=== PATIENT | male | born 1955 | race Caucasian/White ===

== ENCOUNTER 2017-12-01 07:10 | Inpatient (IN) | payer OTHER ==
[2017-12-01] MEDS ORDERED: ONDANSETRON 4 MG/2 ML VIAL IVP ONE (07:25)
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
[2017-12-01 07:40] LABS: PLATELET COUNT 314 10^3/uL (150-400)
[2017-12-01] MEDS ORDERED: HYDROmorphONE/DILAUDID 2 MG/ML INJ IVP ONE ×2 (07:58→09:32)
[2017-12-01] MEDS ORDERED: DIAZEPAM 5 MG/ML 1 ML SYR IVP ONE (08:19)
[2017-12-01] MEDS ORDERED: DIAZEPAM 5 MG/ML 1 ML SYR ONE (08:21)
--- NOTE | 2017-12-01 08:24 | CPEKG ---
Heart Rate: 94 RR Interval: 638 P-R Interval: 155 QRSD Interval: 92 QT Interval: 356 QTC Interval: 446 P [place]: 0 QRS [place]: 82 T Wave [place]: 65 EKG Severity - OTHERWISE NORMAL ECG - EKG Impression: SINUS RHYTHM EKG Impression: BORDERLINE RIGHT AXIS DEVIATION Electronically Signed By: Yuliya Mix 01-Dec-2017 15:02:17
[2017-12-01] MEDS ORDERED: NS 1,000 ML IV ONE (08:40)
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
[2017-12-01] MEDS ORDERED: BUPIVACAINE/EPI 0.5% 30 ML SDV ONE (10:04)
[2017-12-01] MEDS ORDERED: BUPIVACAINE 0.5% 30 ML SDV ONE (10:05)
[2017-12-01] MEDS ORDERED: fentaNYL 100 MCG/2 ML INJ ONE ×5 (10:39→14:10)
[2017-12-01] MEDS ORDERED: PROPOFOL 200 MG/20 ML VIAL ONE (10:39)
[2017-12-01] MEDS ORDERED: MIDAZOLAM 2 MG/2 ML VIAL ONE (10:39)
[2017-12-01] MEDS ORDERED: SUCCINYLCHOLINE CHLORIDE 200 MG/10 ML SYR IVP ONE (10:40)
[2017-12-01] MEDS ORDERED: LR 1,000 ML IV ONE (10:42)
[2017-12-01] MEDS ORDERED: KETOROLAC 30 MG/1 ML SDV ONE (10:57)
[2017-12-01] MEDS ORDERED: ONDANSETRON 4 MG/2 ML VIAL ONE (10:57)
[2017-12-01] MEDS ORDERED: DEXAMETHASONE 4 MG/ML VIAL ONE (10:58)
--- NOTE | 2017-12-01 11:06 | PDANEPAE ---
ANE History of Present Illness Patient presents for TFN left ANE Past Medical History - Pulmonary History Hx COPD: Yes Hx Oxygen in Use at Home: No - Endocrine History Hx Diabetes: No - Liver History Hx Hepatic Disorders: Yes Hepatic History Comment: HCV ANE Review of Systems Review of Systems: ANE Patient History - Allergies Allergies/Adverse Reactions: gabapentin [From Neurontin] Allergy (Unknown, Verified 07/31/12 11:46) Unknown - Home Medications Home medications: home medication list seen and reviewed Home Medications: Fluticasone/Salmeter 250/50Mcg [Advair 250/50 (*)] 1 puffs IH BID 06/09/16 [ Last Taken Unknown] oxyCODONE IR [Oxycodone Ir (*)] 10 mg PO Q4HRS 06/09/16 [Last Taken Unknown] Ipratropium [Atrovent Hfa (*)] 2 puffs IH Q4HRS 12/01/17 [Last Taken Unknown] Lidocaine 4%/Menthol 1% [Icy Hot Lidocaine/Menthol 4%/1% Patch (*)] 1 patch TD DAILY 12/01/17 [Last Taken Unknown] Sumatriptan Succinate [Imitrex] 50 - 100 mg PO DAILY PRN 12/01/17 [Last Taken Unknown] lamoTRIgine [LamICTAL 100 MG (*)] 100 mg PO DAILY 12/01/17 [Last Taken Unknown] morphINE SR [Ms Contin/Oramorph 15 mg (*)] 15 mg PO BID 12/01/17 [Last Taken Unknown] - NPO status NPO Status: no food or drink >8 hours NPO Since - Liquids (Date): 12/01/17 NPO Since - Liquids (Time): 04:30 NPO Since - Solids (Date): 11/30/17 NPO Since - Solids (Time): 00:59 - Smoking Hx Smoking Status: Former smoker ANE Labs/Vital Signs - Labs Result Diagrams: 12/01/17 07:20 12/01/17 07:20 - Vital Signs Blood Pressure: 130/77 Heart Rate: 93 Respiratory Rate: 18 O2 Sat (%): 93 Height: 167.64 cm Weight: 53.524 kg ANE Physical Exam - Airway Neck exam: FROM Mallampati Score: Class 2 Mouth exam: poor dentition - Pulmonary Pulmonary: no respiratory distress - Cardiovascular Cardiovascular: regular rate and rhythym - ASA Status ASA Status: III ANE Anesthesia Plan Anesthesia Plan: general endotracheal anesthesia (rba discussed)
[2017-12-01] MEDS ORDERED: PHENYLEPHRINE HCL 100 MCG/ML SYR ONE ×2 (12:26)
[2017-12-01] MEDS ORDERED: oxyCODONE IR 5 MG TAB PO PRN ×2 (12:45→13:33)
[2017-12-01] MEDS ORDERED: NALOXONE HCL 0.4 MG/ML INJ IVP PRN (12:45)
[2017-12-01] MEDS ORDERED: LR 500 ML IV PRN (12:45)
[2017-12-01] MEDS ORDERED: ACETAMINOPHEN 500 MG TAB PO PRN (12:45)
[2017-12-01] MEDS ORDERED: ONDANSETRON 4 MG/2 ML VIAL IVP PRN (12:45)
[2017-12-01] MEDS: fentaNYL 100 MCG/2 ML INJ IVP PRN ×4 (13:22→14:14)
--- NOTE | 2017-12-01 13:24 | POSTOPPROG ---
Post Op Note Date of Operation: 12/01/17 Surgeon: Cristo Clifford Wood Handler: janet Liriano Anesthesiologist: jose carlos Anesthesia: GET(General Endotracheal) Pre-op Diagnosis: Comminuted proximal femur fx LT closed Post-op Diagnosis: same Procedure: IMN, ORIF femur Findings: comminuted femur fx Inf/Abcess present in the surg proc area at time of surgery?: No EBL: 100-500 Complications: none
[2017-12-01] MEDS ORDERED: oxyCODONE IR 5 MG TAB ONE (14:10)
[2017-12-01] MEDS ORDERED: DIAZEPAM 5 MG TAB ONE (14:11)
[2017-12-01] MEDS ORDERED: DIAZEPAM 5 MG TAB PO ONE (14:15)
--- NOTE | 2017-12-01 14:35 | GOP ---
[f rep st] OPERATIVE REPORT DATE OF OPERATION: 12/01/2017 SURGEON: Cristo Clifford MD IRONING WORKER: Donell Liriano CST. ANESTHESIA: General. ANESTHESIOLOGIST: Dr. Moon. PREOPERATIVE DIAGNOSIS: Proximal left femur fracture. POSTOPERATIVE DIAGNOSIS: Proximal left femur fracture. PROCEDURE PERFORMED: 1. Intramedullary nailing, left femur fracture. 2. Open reduction and internal fixation. FINDINGS: ESTIMATED BLOOD LOSS: 200 mL. DESCRIPTION OF PROCEDURE: After appropriate informed consent was obtained, the patient was taken to the operating room and placed supine on the operating table. Time-out was performed. Patient was id entified. Correct site was identified, matched with radiographs available in the room. He was adminis tered [address] Moon administered general endotracheal tube anesthesia. The pat ient was positioned on the fracture table. The left lower extremity in the traction boot. Right low er extremity was placed in a well-padded leg osborn. The fracture was comminuted with a butterfly fr agment that was flipped on the medial side. We applied a little traction. We then made an incision o blaise the tip of the greater trochanter and got our starting point. Due to the comminuted fracture, I made an open incision centered directly over the fracture site using a laterally based incision. ITB was incised. Vastus lateralis was elevated off the bone. Bleeding was controlled electrocautery. I t was in 3 large pieces. I was able to get the pieces realigned, held them in place with a series of clamps and then was able to pass our ball-tipped guidewire to the tip of the distal femur. We then sequentially reamed up to a size 12 with good cortical chatter. I measured that 380 mm long. We then passed our nail past the fracture site and seated distally. Using our extramedullary jig, we placed a spiral blade plate superiorly into the head and neck of the femur and confirmed its position with AP and lateral fluoroscopic images. Again, due to the comminuted nature of the fracture, I was able to place 3 cerclage wires starting of the lesser trochanter and working distally holding the fracture fragments securely in place around the nail. I placed one distal locking screw using perfect platinum technique. Final imaging was obtained which showed satisfactory reduction of the fracture and nail p osition. The wound was irrigated. I closed the deep layers with 0 Vicryl, superficial layers closed with 2-0 Vicryl and the skin was closed with ayan. I instilled 30 mL of 0.5% Marcaine with epinep hrine around the incisions. Sterile dressing was applied. The patient was transferred back to his [facility] bed, awakened from anesthesia, and taken to the recovery room in satisfactory condition. Ther e were no immediate intraoperative complications. Damian Liriano's assistance was required throughout the entire case. COMPLICATIONS: None. DRAINS: None. IMPLANTS USED: A Synthes TFN 11 x 38 mm nail, 3 cerclage wires. COMPLICATIONS: None. DRAINS: None. HISTORY: Samy is a 62-year-old male who slipped and fell about 10 feet off a wall today and sustai abdelrahman a proximal femur fracture. He was brought to the emergency department. I evaluated him in the [facility] [place]. Decision was made to proceed with open reduction and internal fixation, and intramedullar y nailing of his femur. /[id number]/MODL
--- NOTE | 2017-12-01 14:53 | POSTANESTH ---
Post Anesthetic Evaluation Cardiovascular Status: Similar to Pre-Op Cond Respiratory Status: Similar to Pre-op Cond. Level of Consciousness/Mental Status: Alert and Oriented Pain Control: Adequate, Prn Tx Ordered, Inadeq, Add Tx Required Nausea/Vomiting Control: Adequate, Prn Tx Ordered Complications Possibly Related to Anesthesia: None Noted (valium ordered for muscle spasms)
[2017-12-01] MEDS ORDERED: SUMAtriptan 50 MG TAB PO PRN (15:15)
--- NOTE | 2017-12-01 15:37 | PDMN ---
Medical Necessity Medical necessity: IP surgery per Mcare for ORIF, intramedullary nailing of L femur fx
[2017-12-01] MEDS: IPRATROPIUM HFA INHALER IH SCH ×3 (15:48→21:15)
[2017-12-01] MEDS: oxyCODONE IR 5 MG TAB PO PRN ×2 (18:37→23:07)
[2017-12-01] MEDS: ceFAZolin 2 GM/SWFI 2 GM/20 ML SYR IVP SCH (18:38)
[2017-12-01] MEDS: D5W 1/2 NS W/ 20 KCl/L 1,000 ML IV SCH (18:41)
[2017-12-01] MEDS: DIAZEPAM 5 MG TAB PO PRN (20:52)
[2017-12-01] MEDS: morphINE SR 15 MG TAB PO SCH (20:52)
[2017-12-01] MEDS: FLUTICASONE/SALMETER 250/50MCG DISKUS IH SCH (21:15)
--- NOTE | 2017-12-01 23:42 | GHP ---
[f rep st] PREOP HISTORY AND PHYSICAL DATE OF ADMISSION: 12/01/2017 HISTORY OF PRESENT ILLNESS: Patient is a 62-year-old male seen early this morning after a slip and f all sustaining a left femur fracture. He will be seen by orthopedist for ORIF of his femur. He has no other injuries from the fall. He is brought in as a limited trauma activation because of a 10 alberta t fall. He denies any loss of consciousness, and he has no other complaints of pain. REVIEW OF SYSTEMS: Negative on a full 10-point review. PAST HISTORY: Includes a lumbar spine fusion, an appendectomy, cholecystectomy, history of hepatitis C, bilateral hand surgeries, bilateral cataract surgeries, left 11th and 12th rib resection, some CO PD. SOCIAL HISTORY: He is an ex-smoker. ALLERGIES: Gabapentin. PRESENT MEDICATIONS: Are Advair, Atrovent, oxycodone, Imitrex, Lamictal, MS Contin. PHYSICAL EXAMINATION: GENERAL: An alert 62-year-old male in no acute distress. HEAD AND NECK: No icterus, adenopathy, or oral lesions. Neck is supple and nontender. CHEST: Clear and symmetrical w ith no palpable rib or clavicle fractures and no tenderness. CARDIAC: Regular rhythm. ABDOMEN: So ft; nontender; without masses, organomegaly, or hernias. GENITALIA: Normal. EXTREMITIES: Full pul ses. Full range of motion except for the left leg which is externally rotated and shortened with a t lobo palpable femur fracture. NEUROLOGIC: Physiologic and symmetric with intact cranial nerves. P SYCH: Patient alert, somewhat anxious, oriented, and cooperative. IMPRESSION: Left femur fracture. PLAN: Admit for Orthopedic consultation and ORIF of his left femur. /[id number]/MODL
[2017-12-02] MEDS: ACETAMINOPHEN 325 MG TAB PO PRN (00:07)
[2017-12-02] MEDS: IPRATROPIUM HFA INHALER IH SCH ×6 (02:05→21:10)
[2017-12-02] MEDS: DIAZEPAM 5 MG TAB PO PRN ×3 (03:13→17:50)
[2017-12-02] MEDS: ceFAZolin 2 GM/SWFI 2 GM/20 ML SYR IVP SCH (03:13)
[2017-12-02] MEDS: oxyCODONE IR 5 MG TAB PO PRN ×3 (03:13→11:41)
--- NOTE | 2017-12-02 08:48 | SOAPPROG ---
MAE Progress Note Assessment/Plan: Assessment: POD#1 LT IMN/ORIF femur fx Plan: 12/02/17 08:45 H/H drop asymptomatic so far will see how he does Today with PT TTWB x 4 weeks Xarelto for DVT proph chronic pain on baseline home meds may need snf Subjective: still having quite a bit of pain Objective: dressing c/d/i calf soft 5/5 df/pf 1+dp/pt pulses Vital Signs Temp Pulse Resp BP Pulse Ox 37.2 C 94 18 115/67 94 12/02/17 07:35 12/02/17 07:35 12/02/17 07:35 12/02/17 07:35 12/02/17 07:35 Laboratory Results 12/02/17 00:26 12/01/17 12/02/17 12/03/17 05:59 05:59 05:59 Intake Total 3035 Output Total 1450 450 Balance 1585 -450 ICD10 Worksheet Patient Problems: Problems Problem Status Onset Femur fracture, left Acute Altered mental status Active
[2017-12-02] MEDS: FLUTICASONE/SALMETER 250/50MCG DISKUS IH SCH ×2 (08:56→20:38)
[2017-12-02] MEDS: LIDOCAINE 4%/MENTHOL 1% PATCH TD SCH (09:34)
[2017-12-02] MEDS: lamoTRIgine 100 MG TAB PO SCH (09:34)
[2017-12-02] MEDS: RIVAROXABAN 10 MG TAB PO SCH (09:34)
[2017-12-02] MEDS: morphINE SR 15 MG TAB PO SCH ×2 (09:34→21:03)
--- NOTE | 2017-12-02 11:15 | ASMTCMCOM ---
CM Note CM Note Notes: Chart reviewed. Therapies pending. 62 year old male with chronic pain fell and sustained left femur fracture. Normally lives alone. CM attempted to see him but he is asleep. Needs to be determined. CM to follow. Plan:TBD Date Signed: 12/02/2017 11:14 AM Electronically Signed By:Mervat Duarte RN
[2017-12-02] MEDS ORDERED: BISACODYL 10 MG SUPP PR PRN (13:04)
[2017-12-02] MEDS ORDERED: MAGNESIUM HYDROXIDE 30 ML UDCUP PO PRN (13:04)
[2017-12-02] MEDS ORDERED: POLYETHYLENE GLYCOL 3350 17 GM PKT PO PRN (13:04)
--- NOTE | 2017-12-02 14:11 | TRAUMAPN ---
Trauma Progress Note Assessment/Plan: s/p slip and fall with L femur fx Chronic pain COPD Tertiary survey performed and no additional injuries were noted I consulted the hospitalists - after they see, I will ask for them to be primary and trauma will sign off I added bowel protocol S: Was sleeping soundly. When I woke him, he concentrated a lot on his pain control Objective: Vital Signs Temp Pulse Resp BP Pulse Ox 37.2 C 84 16 122/61 H 95 12/02/17 07:35 12/02/17 11:39 12/02/17 11:39 12/02/17 11:39 12/02/17 11:39 Laboratory Results 12/02/17 13:12 12/02/17 13:12 12/01/17 12/02/17 12/03/17 05:59 05:59 05:59 Intake Total 3035 Output Total 1450 950 Balance 1585 -950 Physical Exam - Physical Exam General Appearance: WD/WN, alert, no apparent distress EENT: PERRL/EOMI, normal ENT inspection, No scleral icterus (R), No scleral icterus (L), No hearing deficit Neck: non-tender, full range of motion Respiratory: chest non-tender, lungs clear, normal breath sounds Cardiac/Chest: regular rate, rhythm Abdomen: normal bowel sounds, non-tender, soft Skin: normal color, warm/dry Extremities: other (Pain on left upper leg) Neuro/Psych: no motor/sensory deficits, alert
[2017-12-02] MEDS ORDERED: NALOXONE HCL 0.4 MG/ML INJ IVP PRN (15:00)
[2017-12-02] MEDS ORDERED: ALBUTEROL 3 ML DEYVIAL IH PRN (15:14)
[2017-12-02] MEDS: morphINE PCA 30 MG/30 ML PCA IV PRN (15:48)
[2017-12-02] MEDS: SENNOSIDES/DOCUSATE SODIUM TAB PO SCH ×2 (16:02→21:03)
--- NOTE | 2017-12-02 16:11 | GCON ---
[f rep st] CONSULTATION MEDICINE CONSULTATION CHIEF COMPLAINT: Fall from a 10-foot ledge. HISTORY OF PRESENT ILLNESS: The patient is a 62-year-old male with a history of chronic low back luis n and chronic opioid dependence, who presents to the emergency department as a limited trauma activat ion after he took a fall from a 10-foot ledge taking photos on the [facility]. He was found to have a comminuted proximal femoral shaft fracture. He was admitted to the [facility]. Orthopedic Surgery consultation was obtained. He went to the operating room the afternoon of ad mission for ORIF of his femur fracture. Medicine consultation is obtained on postop day 1 for postop pain management. He states he is in severe pain currently. He reports he takes MS-Contin and oxycodone as an outpatie nt for chronic low back pain. He has a history of lumbar spinal fusion surgery with refractory low b ack pain. I also understand from chart review, he has a history of IV drug abuse though denies recen t drug use. He also has a history of tobacco abuse and suspected COPD, for which he uses Advair and Atrovent. Currently, he denies fevers or chills, although I note he did have a temperature of 39 deg keenan at 2300 last night. He has remained afebrile throughout the day. He has no chest pain or short ness of breath. He denies abdominal pain, nausea, or vomiting. He has increased pain with any movem ent and he is requesting more pain medication. PAST MEDICAL/SURGICAL HISTORY: 1. Chronic low back pain. 2. Lumbar spinal fusion complicated by postop hardware infection. 3. Chronic opioid dependence. 4. History of IV drug abuse. 5. History of hepatitis C. 6. COPD. 7. Bilateral cataract surgery. 8. Bilateral hand surgeries. 9. Left 11th and 12th rib resections. 10. Cholecystectomy. 11. Appendectomy. MEDICATIONS: Please see [employer] for completed outpatient medication list. ALLERGIES: Gabapentin. SOCIAL HISTORY: The patient lives independently. He is on disability. He is a former smoker with a 40 pack-year tobacco history. He apparently has a history of IV drug abuse, though denies recent dr ug use or alcohol. FAMILY HISTORY: Father had a stroke. REVIEW OF SYSTEMS: A 10-point review of systems was performed and is negative except as per HPI. OBJECTIVE: VITAL SIGNS: Temperature is 37.2, blood pressure 122/61, heart rate 84, respiratory rate 16. He is 96% on 2 L oxygen by nasal cannula. GENERAL: The patient is awake, alert, oriented, in no acute distress. HEENT: Head is atraumatic, normocephalic. Pupils equal, round, react to light. Extraocular movements intact. Oropharynx clear. Mucous membranes are moist. NECK: Supple. There is no JVD. HEART: Regular rate and rhythm and rhythm without murmur. LUNGS: Reveal bibasilar ashvin nt crackles which may be atelectatic. ABDOMEN: Soft, nondistended, nontender. Hypoactive bowel liang nds. EXTREMITIES: He has appropriate swelling in his right femoral region. Extremities otherwise w arm and well perfused with 2+ peripheral pulses. NEUROLOGIC: Grossly nonfocal. PSYCH: The patient is quite anxious. LABORATORY DATA: His hemoglobin this morning was 7.9, down from 13.1 prior to surgery. Repeat hemog lobin this morning is stable again at 7.9. Basic metabolic panel shows normal electrolytes, normal c reatinine of 0.8, blood sugar of 121. Chest x-ray performed last night showed cardiomegaly. No evidence of pulmonary edema or pneumonia. There is stable mild peribronchial thickening without effusion or pneumothorax. ASSESSMENT AND PLAN: The patient is a 62-year-old male with history of chronic low back pain, chroni c opioid dependence, who presents to the emergency department after a fall, who suffered a left proxi mal comminuted femur fracture. 1. Left femur fracture, status post open reduction and internal fixation, postoperative day #1. Pos toperative management per Orthopedic Surgery. Continue physical therapy/occupational therapy. He almendarez s poor pain control. I suspect he has a very high opioid tolerance and very well may be taking highe r doses than what is reported in his home medication reconciliation form. Will change him from as-ne eded intravenous morphine to morphine patient-controlled analgesia and continue his usual MS-Contin d ose. 2. Acute blood loss anemia. His hemoglobin is stable at 7.9 last night to this morning. There is n o evidence of active bleeding. We will continue to follow his hemoglobin and hematocrit, and transfu se for hemoglobin less than 7 or symptoms. 3. Chronic obstructive pulmonary disease. I do not think he is having an acute exacerbation. We wi ll continue his home medications of Advair, Atrovent, and will add as-needed albuterol nebulized delisa tments. 4. Chronic pain with chronic continuous opioid dependence. As above, I suspect he has high opioid t olerance and will require higher doses for pain control. If his pain escalates, could consider trans gera to the intensive care unit for intravenous ketamine. I have deferred the addition of anti-inflam matories at this point, given his Xarelto and recent drop in hemoglobin. 5. History of intravenous drug abuse. We will send urine toxicology screen. It will obviously be p ositive for opioids and possibly benzodiazepine, which were ordered here, but will evaluate for amphe tamines or other substances. 6. Deep venous thrombosis prophylaxis with Xarelto. 7. Code status is full code. 8. Disposition: Continue inpatient. Thank you very much for this consultation. Medicine will continue to follow, and we are happy to bec ome primary. Please contact us with any further questions or concerns. /[id number]/MODL
[2017-12-02] MEDS: PATCH REMOVAL 1 EA PATCH TD SCH (21:03)
[2017-12-03] MEDS: DIAZEPAM 5 MG TAB PO PRN ×2 (01:38→16:38)
[2017-12-03] MEDS: oxyCODONE IR 5 MG TAB PO PRN ×5 (01:38→20:17)
[2017-12-03] MEDS: IPRATROPIUM HFA INHALER IH SCH ×6 (01:55→22:27)
[2017-12-03] MEDS: SENNOSIDES/DOCUSATE SODIUM TAB PO SCH ×2 (08:02→20:17)
[2017-12-03] MEDS: lamoTRIgine 100 MG TAB PO SCH (08:02)
[2017-12-03] MEDS: LIDOCAINE 4%/MENTHOL 1% PATCH TD SCH (08:03)
[2017-12-03] MEDS: LACTULOSE 20 GM/30 ML UDCUP PO PRN ×2 (08:03→14:41)
[2017-12-03] MEDS: RIVAROXABAN 10 MG TAB PO SCH (08:03)
[2017-12-03] MEDS: morphINE SR 15 MG TAB PO SCH ×2 (08:03→20:17)
[2017-12-03] MEDS: FLUTICASONE/SALMETER 250/50MCG DISKUS IH SCH ×2 (08:04→22:25)
[2017-12-03] MEDS ORDERED: PNEUMOCOCCAL 0.5ML VACCINE VIAL IM ONE (08:10)
[2017-12-03] MEDS: D5W 1/2 NS W/ 20 KCl/L 1,000 ML IV SCH (08:39)
[2017-12-03] MEDS ORDERED: NS 1,000 ML IV ONE (09:02)
[2017-12-03] MEDS ORDERED: ALBUTEROL 60 PUFFS/8 GM MDI IH PRN (09:03)
--- NOTE | 2017-12-03 10:39 | ASMTCMCOM ---
CM Note CM Note Notes: Met w/pt to discuss dc plan options. Pt is open to considering SNF but stated he would rather go home with home care. I discussed this w/Dr Clifford who really felt that pt would need SNF Rehab prior to returning home. He lives in apt alone on 2nd floor and there are 2 flights of stairs to get up to his apt (no elevator). Pt reported he is on SSDI. He was open to me sending referrals for SNF and stated that he would like to stay in [place] if he does decide to go to SNF. Referrals sent, did include [facility] as it is near to [place]. CM will follow. Date Signed: 12/03/2017 10:38 AM Electronically Signed By:Eufemia Williamson RN
--- NOTE | 2017-12-03 11:54 | SOAPPROG ---
MAE Progress Note Assessment/Plan: Assessment: POD#1 LT IMN/ORIF femur fx Plan: 12/02/17 08:45 H/H drop asymptomatic so far will see how he does Today with PT TTWB x 4 weeks Xarelto for DVT proph chronic pain on baseline home meds may need snf 12/03/17 11:54 POD#2 IMN/ORIF femur xarelto appreciate medicine consult to help with pain management issues TTWB x 4 weeks PT/OT SNF Subjective: still having a lot of pain up with PT Objective: dressing c/d/i calf soft leg lengths equal 5/5 df/pf Vital Signs Temp Pulse Resp BP Pulse Ox 37.5 C 96 16 94/52 L 98 12/03/17 10:00 12/03/17 10:00 12/03/17 10:00 12/03/17 10:00 12/03/17 10:00 Laboratory Results 12/03/17 11:30 12/02/17 13:12 12/02/17 12/03/17 12/04/17 05:59 05:59 05:59 Intake Total 9265 746 Output Total 1351 5640 Balance 1585 -1104 ICD10 Worksheet Patient Problems: Problems Problem Status Onset Femur fracture, left Acute Altered mental status Active
--- NOTE | 2017-12-03 12:17 | ASMTCMCOM ---
CM Note CM Note Notes: Pt triggered PASRR faxed to [facility] Date Signed: 12/03/2017 12:17 PM Electronically Signed By:ANITA Montelongo
--- NOTE | 2017-12-03 15:18 | HOSPPROG ---
Hospitalist Progress Note Assessment/Plan: 62 yo M with hx of chronic pain with cont opiate use presenting s/p fall from 10 feet with femoral fx # left femur fx: s/p ORIF for comminuted proximal femoral shaft fx, pain remains an issue as next # acute on chronic pain with continuous opiate use and dependencey: Patient with difficult to manage pain and some obsessive behaviors around his pain medicine, very anxious regarding any percieived possible pain and any restrctions in his pain meds. Continued his home regimen, will work to decrease his additional pain meds as able, will need to work to have patient examine difference between "pain and suffering" # ABLA: with continued drop in h/h an plan for transfusion of 2 units for hct of 18. Does not have signs of ongoing bleeding otherwise but perhaps some post operative oozing contributing. Will continue to trend. Ortho aware. # anxiety: contributing likely in large part to his inability to manage his pain , continue prn benzos and working on redirecting # h/o IVDA/ hep C: no acute issues # protein calorie malnutrtion: BMI of 19, appears cachectic, will ask nutrition to evaluate # dispo: IP status, will need to work on pain management and mobility Patient new to my care. Old records reviewed and summarized as above. Care plan reviewed with ortho as above. Subjective: no signifcant overnight events, very anxious and tearful and worried about his pain control in particular if he needs to have blood drawn Objective: Vital Signs Temp Pulse Resp BP Pulse Ox 37.1 C 105 H 18 90/48 L 96 12/03/17 14:00 12/03/17 14:00 12/03/17 14:00 12/03/17 14:00 12/03/17 14:00 Laboratory Results 12/03/17 11:30 12/02/17 13:12 12/02/17 12/03/17 12/04/17 05:59 05:59 05:59 Intake Total 3035 746 Output Total 1450 1850 500 Balance 1585 -1104 -500 awake alert anxious anicteric op clear tachy regular no mrg cta b soft nt nd no cce warm pale dry oriented anxious tearful - Time Spent With Patient Time Spent with Patient: greater than 35 minutes Time Spent with Patient: Greater than 35 minutes spent on this patients care, greater than 50% of time spent counseling, educating, and coordinating care regarding the above mentioned plan. ICD10 Worksheet Patient Problems: Problems Problem Status Onset Altered mental status Active Femur fracture, left Acute
[2017-12-03] MEDS: ACETAMINOPHEN 325 MG TAB PO PRN (16:06)
[2017-12-03] MEDS: PATCH REMOVAL 1 EA PATCH TD SCH (20:17)
[2017-12-03] MEDS: morphINE PCA 30 MG/30 ML PCA IV PRN (23:59)
[2017-12-04] MEDS: IPRATROPIUM HFA INHALER IH SCH ×6 (02:53→21:00)
[2017-12-04] MEDS: DIAZEPAM 5 MG TAB PO PRN ×3 (04:55→20:29)
[2017-12-04] MEDS: oxyCODONE IR 5 MG TAB PO PRN ×4 (04:55→20:29)
[2017-12-04] MEDS: FLUTICASONE/SALMETER 250/50MCG DISKUS IH SCH ×2 (08:16→20:55)
[2017-12-04] MEDS: morphINE SR 15 MG TAB PO SCH ×2 (08:36→20:29)
[2017-12-04] MEDS: LIDOCAINE 4%/MENTHOL 1% PATCH TD SCH (08:36)
[2017-12-04] MEDS: RIVAROXABAN 10 MG TAB PO SCH (08:36)
[2017-12-04] MEDS: lamoTRIgine 100 MG TAB PO SCH (08:36)
[2017-12-04] MEDS: SENNOSIDES/DOCUSATE SODIUM TAB PO SCH ×2 (08:36→20:29)
--- NOTE | 2017-12-04 13:58 | ASMTCMCOM ---
CM Note CM Note Notes: PT still continues to rec SNF. Spoke with Paris at [facility], they can accept pt. Pt has been declined from [facility], [facility] pending and new referral sent to [facility] is pending. Pt PASRR was approved sent from [facility], it has been uploaded to [email or web address] and is in the chart. and CM to follow. Date Signed: 12/04/2017 01:57 PM Electronically Signed By:ANITA Montelongo
--- NOTE | 2017-12-04 15:26 | HOSPPROG ---
Hospitalist Progress Note Assessment/Plan: 62 yo M with hx of chronic pain with cont opiate use presenting s/p fall from 10 feet with femoral fx # left femur fx: s/p ORIF for comminuted proximal femoral shaft fx, pain remains an issue as next # acute on chronic pain with continuous opiate use and dependencey: Patient with difficult to manage pain and some obsessive behaviors around his pain medicine, very anxious regarding any perceived possible pain and any restrictions in his pain meds. 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 Discussed that will plan to wean off of morphine ELECTRIC STOVE MECHANIC tomorrow as well as other IV pain meds. # ABLA: with continued drop in h/h an plan for transfusion of 2 units for hct of 18. H/h improved as expected s/p transfusion # anxiety: contributing likely in large part to his inability to manage his pain , continue prn benzos and working on redirecting # h/o IVDA/ hep C: no acute issues though likely contributing to his perseveration regarding pain meds # protein calorie malnutrtion: BMI of 19, appears cachectic, will ask nutrition to evaluate, does seem to eat well # dispo: IP status, will need to work on pain management and mobility Subjective: no significant overnight events, pain remains severe when he moves, states that he is very worried that we are going to take his IV pain medications away and that he feels this is not fair Objective: Vital Signs Temp Pulse Resp BP Pulse Ox 36.6 C 88 16 99/55 L 93 12/04/17 14:00 12/04/17 14:00 12/04/17 14:00 12/04/17 14:00 12/04/17 14:00 Laboratory Results 12/04/17 11:30 12/04/17 11:30 12/03/17 12/04/17 12/05/17 05:59 05:59 05:59 Intake Total 746 500 240 Output Total 1850 1400 1050 Balance -1104 -900 -810 awake alert anxious anicteric op clear tachy regular no mrg cta b soft nt nd no cce warm pale dry oriented anxious tearful - Time Spent With Patient Time Spent with Patient: greater than 35 minutes Time Spent with Patient: Greater than 35 minutes spent on this patients care, greater than 50% of time spent counseling, educating, and coordinating care regarding the above mentioned plan. ICD10 Worksheet Patient Problems: Problems Problem Status Onset Femur fracture, left Acute Altered mental status Active
[2017-12-04] MEDS: PATCH REMOVAL 1 EA PATCH TD SCH (20:28)
[2017-12-05] MEDS: DIAZEPAM 5 MG TAB PO PRN ×3 (02:15→17:30)
[2017-12-05] MEDS: oxyCODONE IR 5 MG TAB PO PRN ×4 (02:15→22:30)
[2017-12-05] MEDS: IPRATROPIUM HFA INHALER IH SCH ×6 (02:27→22:33)
[2017-12-05] MEDS: SENNOSIDES/DOCUSATE SODIUM TAB PO SCH ×2 (08:45→22:30)
[2017-12-05] MEDS: lamoTRIgine 100 MG TAB PO SCH (08:46)
[2017-12-05] MEDS: morphINE SR 15 MG TAB PO SCH ×2 (08:46→22:31)
[2017-12-05] MEDS: RIVAROXABAN 10 MG TAB PO SCH (08:46)
[2017-12-05] MEDS: LIDOCAINE 4%/MENTHOL 1% PATCH TD SCH (08:54)
[2017-12-05] MEDS: FLUTICASONE/SALMETER 250/50MCG DISKUS IH SCH ×2 (09:03→22:33)
--- NOTE | 2017-12-05 11:56 | POSTOPPROG ---
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
--- NOTE | 2017-12-05 16:22 | HOSPPROG ---
Hospitalist Progress Note Assessment/Plan: 62 yo M with hx of chronic pain with cont opiate use presenting s/p fall from 10 feet with femoral fx # left femur fx: s/p ORIF for comminuted proximal femoral shaft fx, pain improved and no longer requiring HOUSE DETECTIVE # acute on chronic pain with continuous opiate use and dependency: Patient with difficult to manage pain and some obsessive behaviors around his pain medicine, very anxious regarding any perceived possible pain and any restrictions in his pain meds. Continued his home regimen, and now weaned off of HOUSE DETECTIVE # scrotal swelling/discoloration: appears most c/w scrotal hematoma and suspect this is 2/2 tracking from post op bleeding from ORIF. US shows that testicles appear normal and without torsion etc. Soft tissue thickening is most likely blood rather than infection, will continue to elevate and monitor. # ABLA: with continued drop in h/h an plan for transfusion of 2 units for hct of 18. H/h improved as expected s/p transfusion. Will recheck cbc in am given above . # anxiety: contributing likely in large part to his inability to manage his pain , continue prn benzos and working on redirecting # h/o IVDA/ hep C: no acute issues though likely contributing to his perseveration regarding pain meds # protein calorie malnutrtion: BMI of 19, appears cachectic, eating well # dispo: IP status, will need to work on pain management and mobility high risk requiring IV pain medications Subjective: no significant overnight events, pain control has improved, notes that his scrotum is swollen and discolored this am Objective: Vital Signs Temp Pulse Resp BP Pulse Ox 37.3 C 89 18 109/69 90 L 12/05/17 16:00 12/05/17 16:00 12/05/17 16:00 12/05/17 16:00 12/05/17 16:00 Laboratory Results 12/04/17 11:30 12/04/17 11:30 12/04/17 12/05/17 12/06/17 05:59 05:59 05:59 Intake Total 500 2085 480 Output Total 1400 2275 1290 Balance -900 -190 -810 awake alert anxious anicteric op clear tachy regular no mrg cta b soft nt nd no cce warm pale dry oriented anxious tearful ICD10 Worksheet Patient Problems: Problems Problem Status Onset Femur fracture, left Acute Altered mental status Active
--- NOTE | 2017-12-05 18:33 | SOAPPROG ---
MAE Progress Note Assessment/Plan: Assessment: PREVIOUS SURGICAL OP NOTE WAS WRITTEN ON THE WRONG PATIENT AND SHOULD BE DISREGARDED Plan: HOPEFULLY REMOVE THAT OP NOTE 12/05/17 18:32 Objective: Vital Signs Temp Pulse Resp BP Pulse Ox 37.3 C 88 18 109/69 92 12/05/17 16:00 12/05/17 16:45 12/05/17 16:45 12/05/17 16:00 12/05/17 16:45 Laboratory Results 12/04/17 11:30 12/04/17 11:30 12/04/17 12/05/17 12/06/17 05:59 05:59 05:59 Intake Total 500 2085 480 Output Total 1400 2275 1290 Balance -900 -190 -810 ICD10 Worksheet Patient Problems: Problems Problem Status Onset Femur fracture, left Acute Altered mental status Active
[2017-12-05] MEDS: PATCH REMOVAL 1 EA PATCH TD SCH (22:32)
[2017-12-06] MEDS ORDERED: IPRATROPIUM HFA INHALER IH PRN (01:20)
[2017-12-06] MEDS: oxyCODONE IR 5 MG TAB PO PRN ×3 (04:16→12:53)
[2017-12-06] MEDS: DIAZEPAM 5 MG TAB PO PRN (04:17)
--- NOTE | 2017-12-06 07:13 | SOAPPROG ---
MAE Progress Note Assessment/Plan: Assessment: POD#1 LT IMN/ORIF femur fx Plan: 12/02/17 08:45 H/H drop asymptomatic so far will see how he does Today with PT TTWB x 4 weeks Xarelto for DVT proph chronic pain on baseline home meds may need snf 12/03/17 11:54 POD#2 IMN/ORIF femur xarelto appreciate medicine consult to help with pain management issues TTWB x 4 weeks PT/OT SNF 12/06/17 07:12 S/P IMN/ORIF femur TTWB x 4 weeks xarelto x 21 days SNF poss Today Subjective: pain overall better now still having some muscle spasms better with valium Objective: dressing changed, no active bleding thigh compartment soft 5/5 df/pf scrotal swelling improved Vital Signs Temp Pulse Resp BP Pulse Ox 37.4 C 102 H 16 139/97 H 92 12/06/17 04:00 12/06/17 04:00 12/06/17 04:00 12/06/17 04:00 12/06/17 04:00 Laboratory Results 12/06/17 04:20 12/06/17 04:20 12/05/17 12/06/17 12/07/17 05:59 05:59 05:59 Intake Total 1218 7935 Output Total 4710 4668 Balance -190 -510 ICD10 Worksheet Patient Problems: Problems Problem Status Onset Femur fracture, left Acute Altered mental status Active
[2017-12-06] MEDS: morphINE SR 15 MG TAB PO SCH ×2 (08:22→22:59)
[2017-12-06] MEDS: lamoTRIgine 100 MG TAB PO SCH (08:22)
[2017-12-06] MEDS: RIVAROXABAN 10 MG TAB PO SCH (08:23)
[2017-12-06] MEDS: SENNOSIDES/DOCUSATE SODIUM TAB PO SCH ×2 (08:23→22:59)
[2017-12-06] MEDS: LIDOCAINE 4%/MENTHOL 1% PATCH TD SCH (08:24)
[2017-12-06] MEDS: FLUTICASONE/SALMETER 250/50MCG DISKUS IH SCH ×2 (09:07→21:18)
--- NOTE | 2017-12-06 09:28 | PDIAF ---
- Diagnosis Diagnosis: Lt femur fracture Code Status: Full Code - Medication Management Discharge Medications: Medications to Continue on Transfer Fluticasone/Salmeter 250/50Mcg [Advair 250/50 (*)] 1 puffs IH BID 06/09/16 [ Last Taken Unknown] oxyCODONE IR [Oxycodone Ir (*)] 10 mg PO Q4HRS 06/09/16 [Last Taken Unknown] Albuterol [Proventil Inhaler HFA (*)] 1 puffs IH BID PRN 12/01/17 [Last Taken Unknown] Ipratropium [Atrovent Hfa (*)] 2 puffs IH Q4HRS 12/01/17 [Last Taken Unknown] Lidocaine 4%/Menthol 1% [Icy Hot Lidocaine/Menthol 4%/1% Patch (*)] 1 patch TD DAILY 12/01/17 [Last Taken Unknown] Sumatriptan Succinate [Imitrex] 50 - 100 mg PO DAILY PRN 12/01/17 [Last Taken Unknown] lamoTRIgine [LamICTAL 100 MG (*)] 100 mg PO DAILY 12/01/17 [Last Taken Unknown] morphINE SR [Ms Contin/Oramorph 15 mg (*)] 15 mg PO BID 12/01/17 [Last Taken Unknown] Discharge Medications: Refer to the Discharge Home Medication list for PRN reason. - Orders Services needed: Physical Therapy, Occupational Therapy Isolation Type: None Diet Recommendation: no restrictions on diet Diet Texture: Regular Texture Diet Gee Stockings Discontinue Date: 12/16/17 Wound Care Instructions: May get incision wet now, shower ok Sutures/Elly Site: Lt thigh 3 weeks remove Activity/Weight Bearing Restrictions: TTWB LLE x 4 weeks - Follow Up Care Current Providers and Referrals: Patient,NotPresent [Primary Care Provider] - As per Instructions Cristo Clifford MD [Medical Doctor] -
--- NOTE | 2017-12-06 15:39 | ASMTCMCOM ---
CM Note CM Note Notes: DC plan still to go to SNF. Met w/ptto discuss. He is still open to rehab but asking if he can go home first to take care of a few things. I explained to him that he would most likely have to go directly to facility from hospital. Pt also having trouble deciding btw [facility] and [facility]. I asked him if he had anyone that could help him out w/things, asked if he would like for me to call his son; He said that he would and gave permission to share medical info with son. Spoke w/son, Mian, who said that he is very able to help out with things at his Dad's home. We also discussed facilities; son is leaning towards [facility] but we also discussed [facility] and [facility]. He will research facilities tonight. I let him know that it is possible [facility] may not have bed and would need backup facility as he will very likely be ready for dc tomorrow. Son can be reached in AM at [phone]. Discussed w/both Lucinda at [facility] and Reina at [facility]. [facility] able to accept and [facility] able to accept if bed becomes available tomorrow. CM will follow. Date Signed: 12/06/2017 03:38 PM Electronically Signed By:Eufemia Williamson RN
[2017-12-06] MEDS: CYCLOBENZAPRINE 10 MG TAB PO SCH ×2 (17:48→22:59)
--- NOTE | 2017-12-06 18:45 | HOSPPROG ---
Hospitalist Progress Note Assessment/Plan: 62 yo M with hx of chronic pain with cont opiate use presenting s/p fall from 10 feet with femoral fx # left femur fx: s/p ORIF for comminuted proximal femoral shaft fx, pain improved and no longer requiring HEAD RIGGER # acute on chronic pain with continuous opiate use and dependency: Pain now controlled on oral pain medications, pain control more challenging with hx of chronic opiate use # scrotal swelling/discoloration: appears most c/w scrotal hematoma and suspect this is 2/2 tracking from post op bleeding from ORIF. Continue to elevate # ABLA: with continued drop in h/h an plan for transfusion of 2 units for hct of 18. H/h improved as expected s/p transfusion. Will recheck cbc in am given above . # anxiety: contributing likely in large part to his inability to manage his pain , continue prn benzos and working on redirecting # h/o IVDA/ hep C: no acute issues though likely contributing to his perseveration regarding pain meds # protein calorie malnutrtion: BMI of 19, appears cachectic, eating well # dispo: dc to snf when bed available Subjective: no significant overnight events, patient feels ready to dc to snf Objective: Vital Signs Temp Pulse Resp BP Pulse Ox 37.1 C 83 16 88/56 L 90 L 12/06/17 16:00 12/06/17 16:00 12/06/17 16:00 12/06/17 16:00 12/06/17 16:00 Laboratory Results 12/06/17 04:20 12/06/17 04:20 12/05/17 12/06/17 12/07/17 05:59 05:59 05:59 Intake Total 2085 1130 850 Output Total 2275 1640 200 Balance -190 -510 650 awake alert anxious anicteric op clear tachy regular no mrg cta b ICD10 Worksheet Patient Problems: Problems Problem Status Onset Femur fracture, left Acute Altered mental status Active
[2017-12-06] MEDS: D5W 1/2 NS W/ 20 KCl/L 1,000 ML IV SCH (23:47)
[2017-12-07] MEDS: PATCH REMOVAL 1 EA PATCH TD SCH (03:36)
[2017-12-07] MEDS: ACETAMINOPHEN 325 MG TAB PO PRN (07:35)
[2017-12-07] MEDS: oxyCODONE IR 5 MG TAB PO PRN (07:36)
[2017-12-07 08:51] VITALS: BP 88/56
[2017-12-07] MEDS: FLUTICASONE/SALMETER 250/50MCG DISKUS IH SCH (08:57)
[2017-12-07] MEDS: lamoTRIgine 100 MG TAB PO SCH (09:31)
[2017-12-07] MEDS: RIVAROXABAN 10 MG TAB PO SCH (09:31)
[2017-12-07] MEDS: SENNOSIDES/DOCUSATE SODIUM TAB PO SCH (09:31)
[2017-12-07] MEDS: CYCLOBENZAPRINE 10 MG TAB PO SCH ×2 (09:31→09:48)
[2017-12-07] MEDS: morphINE SR 15 MG TAB PO SCH ×2 (09:48→12:14)
[2017-12-07] MEDS: LIDOCAINE 4%/MENTHOL 1% PATCH TD SCH (09:48)
--- NOTE | 2017-12-07 12:55 | PDIAF ---
- Diagnosis Diagnosis: Lt femur fracture Code Status: Full Code - Medication Management Discharge Medications: Medications to Continue on Transfer Fluticasone/Salmeter 250/50Mcg [Advair 250/50 (*)] 1 puffs IH BID 06/09/16 [ Last Taken Unknown] Albuterol [Proventil Inhaler HFA (*)] 1 puffs IH BID PRN 12/01/17 [Last Taken Unknown] Ipratropium [Atrovent Hfa (*)] 2 puffs IH Q4HRS 12/01/17 [Last Taken Unknown] Lidocaine 4%/Menthol 1% [Icy Hot Lidocaine/Menthol 4%/1% Patch (*)] 1 patch TD DAILY 12/01/17 [Last Taken Unknown] Sumatriptan Succinate [Imitrex] 50 - 100 mg PO DAILY PRN 12/01/17 [Last Taken Unknown] lamoTRIgine [LamICTAL 100 MG (*)] 100 mg PO DAILY 12/01/17 [Last Taken Unknown] morphINE SR [Ms Contin/Oramorph 15 mg (*)] 15 mg PO BID 12/01/17 [Last Taken Unknown] Acetaminophen [Tylenol 325mg (*)] 650 mg PO Q6HRS PRN tab 12/06/17 [Last Taken Unknown] Diazepam [Valium 5 MG (*)] 5 mg PO Q6HRS PRN tab 12/06/17 [Last Taken Unknown] Patch Removal 1 ea TD DAILY21 patch 12/06/17 [Last Taken Unknown] Polyethylene Glycol 3350 [Miralax 17 gm (*)] 17 gm PO DAILY PRN pkt 12/06/17 [ Last Taken Unknown] Rivaroxaban [Xarelto 10mg (*)] 10 mg PO DAILY tab 12/06/17 [Last Taken Unknown] Sennosides/Docusate Sodium [Senokot-S] 1 - 2 tab PO BID tab 12/06/17 [Last Taken Unknown] oxyCODONE IR [Oxycodone Ir (*)] 10 - 15 mg PO Q4HRS PRN tab 12/06/17 [Last Taken Unknown] Cyclobenzaprine [Flexeril 10 MG (*)] 10 mg PO TID #0 tab 12/07/17 [Last Taken Unknown] Discharge Medications: Refer to the Discharge Home Medication list for PRN reason. - Orders Services needed: Physical Therapy, Occupational Therapy Isolation Type: None Diet Recommendation: no restrictions on diet Diet Texture: Regular Texture Diet Gee Stockings Discontinue Date: 12/16/17 Wound Care Instructions: May get incision wet now, shower ok Sutures/Elly Site: Lt thigh 3 weeks remove Activity/Weight Bearing Restrictions: TTWB LLE x 4 weeks Additional Instructions: staple removal left thigh 3 weeks toe touch weight bearing left leg for 4 weeks - Follow Up Care Current Providers and Referrals: Cristo Clifford MD [Medical Doctor] - follow up in 2 weeks () Patient,NotPresent [Primary Care Provider] - As per Instructions
--- NOTE | 2017-12-07 15:51 | ASMTCMCOM ---
CM Note CM Note Notes: Pt medically stable for d/c to [facility]. Orders sent in Allscripts. [facility] arranged wc van for 1300. Pt updated transfer of care summary sent as the original from 12/06/17 did not include new medications. Date Signed: 12/07/2017 03:50 PM Electronically Signed By:ANITA Montelongo
--- NOTE | 2017-12-07 15:51 | ASDISCHSUM ---
Discharge Information Plan Status:SNF Medically Cleared to Leave: Discharge Date:12/07/2017 02:03 PM D/C Disposition:[facility] Facility ADT D/C Disposition:[facility] Facility Projected Discharge Date:12/05/2017 11:00 AM Transportation at D/C: Discharge Delay Reason: Follow-Up Date:12/05/2017 11:00 AM Discharge Slot: Final Diagnosis: Placement Information Referral Type:*Correction/SNF Referral ID:[id number] Provider Name:[facility] Address 1:[address] Address 2: City:[place] Selection Factors: State:[place] Patient Contact Information Contact Name:SAMIR Relationship:Friend Address: Work Phone: [facility] Phone: [facility]/Zip Code:[place] [address] Email: Financial Information Financial Class:Medicare Primary Plan Desc:MEDICARE INPATIENT Primary Plan Number:[id number] Secondary Plan Desc: Secondary Plan Number: Assessment Information [facility] CM Progress Note CM Note CM Note Notes: Chart reviewed. Therapies pending. 62 year old male with chronic pain fell and sustained left femur fracture. Normally lives alone. CM attempted to see him but he is asleep. Needs to be determined. CM to follow. Plan:TBD Date Signed: 12/02/2017 11:14 AM Electronically Signed By:Mervat Duarte RN [facility] CM Progress Note CM Note CM Note Notes: Met w/pt to discuss dc plan options. Pt is open to considering SNF but stated he would rather go home with home care. I discussed this w/Dr Clifford who really felt that pt would need SNF Rehab prior to returning home. He lives in apt alone on 2nd floor and there are 2 flights of stairs to get up to his apt (no elevator). Pt reported he is on SSDI. He was open to me sending referrals for SNF and stated that he would like to stay in [place] if he does decide to go to SNF. Referrals sent, did include [facility] as it is near to [place]. CM will follow. Date Signed: 12/03/2017 10:38 AM Electronically Signed By:Eufemia Williamson RN [facility] CM Progress Note CM Note CM Note Notes: Pt triggered MARTÍNRR faxed to Anitha Hagan Date Signed: 12/03/2017 12:17 PM Electronically Signed By:ANITA Montelongo [facility] CM Progress Note CM Note CM Note Notes: PT still continues to rec SNF. Spoke with [place] at [facility], they can accept pt. Pt has been declined from [facility], Angela Renner pending and new referral sent to [facility] is pending. Pt PASRR was approved sent from [facility]itha H[facility], it has been uploaded to [employer] and is in the chart. and CM to follow. Date Signed: 12/04/2017 01:57 PM Electronically Signed By:ANITA Montelongo [facility] CM Progress Note CM Note CM Note Notes: DC plan still to go to SNF. Met w/ptto discuss. He is still open to rehab but asking if he can go home first to take care of a few things. I explained to him that he would most likely have to go directly to facility from hospital. Pt also having trouble deciding w [facility] and [facility]. I asked him if he had anyone that could help him out w/things, asked if he would like for me to call his son; He said that he would and gave permission to share medical info with son. Spoke w/son, Mian, who said that he is very able to help out with things at his Dad's home. We also discussed facilities; son is leaning towards [facility] but we also discussed [facility] and [facility]. He will research facilities tonight. I let him know that it is possible [facility] may not have bed and would need backup facility as he will very likely be ready for dc tomorrow. Son can be reached in AM at [phone]. Discussed w/both Lucinda at [facility] and Reina at [facility]. [facility] able to accept and [facility] able to accept if bed becomes available tomorrow. CM will follow. Date Signed: 12/06/2017 03:38 PM Electronically Signed By:Eufemia Williamson RN [facility] CM Progress Note CM Note CM Note Notes: Pt medically stable for d/c to [facility]. Orders sent in [employer]scripts. [facility] arranged van for 1300. Pt updated transfer of care summary sent as the original from 12/06/17 did not include new medications. Date Signed: 12/07/2017 03:50 PM Electronically Signed By:ANITA Montelongo Intervention Information Intervention Type:*IM-Signed Date of Service:12/06/2017 10:33 AM Patient Type:Inpatient Staff Member:Ariana Hoang Hours: Discipline: Severity: Comment:
--- NOTE | 2017-12-09 19:22 | PDDCSUM ---
Discharge Summary Discharge Summary: Dates of service 12/01-12/07/17 Consultations: general surgery, orthopedics Procedures performed: ORIF Hospital course by problem: 62 yo M with hx of chronic pain with cont opiate use presenting s/p fall from 10 feet with femoral fx # left femur fx: s/p ORIF for comminuted proximal femoral shaft fx, pain improved and no longer requiring MARINE INSULATOR # acute on chronic pain with continuous opiate use and dependency: Pain now controlled on oral pain medications, pain control more challenging with hx of chronic opiate use # scrotal swelling/discoloration: appears most c/w scrotal hematoma and suspect this is 2/2 tracking from post op bleeding from ORIF. Continue to elevate # ABLA: with continued drop in h/h an plan for transfusion of 2 units for hct of 18. H/h improved as expected s/p transfusion. Will recheck cbc in am given above . # anxiety: contributing likely in large part to his inability to manage his pain , continue prn benzos and working on redirecting # h/o IVDA/ hep C: no acute issues though likely contributing to his perseveration regarding pain meds # protein calorie malnutrtion: BMI of 19, eating well # dispo: dc to snf DC to SNF f/u items: post operative wound healing and mobility, CBC > 35 min spent in dc more than half in coordination of care
== END 2017-12-07 14:03 | DRG 481 ==
LOC: EDUNIT# → F3N 14:50
PROVIDERS: ADMIT Surgery; ATTEND Surgery
PROC: 0QS706Z Reposition Left Upper Femur with Intramedullary Internal Fixation Device, Open Approach (ICD-10-PCS; principal; 2017-12-01 11:00)
DX: S72.352A Displaced comminuted fracture of shaft of left femur, initial encounter for closed fracture (principal); S30.22XA Contusion of scrotum and testes, initial encounter; W17.81XA Fall down embankment (hill), initial encounter; Y92.214 College as the place of occurrence of the external cause; D62 Acute posthemorrhagic anemia; E46 Unspecified protein-calorie malnutrition; Z68.1 Body mass index [BMI] 19.9 or less, adult; J44.9 Chronic obstructive pulmonary disease, unspecified; G89.29 Other chronic pain; F11.20 Opioid dependence, uncomplicated; F41.9 Anxiety disorder, unspecified; Z87.891 Personal history of nicotine dependence; Z98.1 Arthrodesis status
CPT/HCPCS: 80307; 96374; 97116-GP; 97162-GP; 97165-GO; 97530-GO; 97530-GP; 97535-GO; C1713; G0480; G8978-GP-CL; G8979-GP-CJ; G8987-GO-CK; G8988-GO-CI; J0330; J0690; J1100; J1170; J1885; J2250; J2270; J2370; J2405; J2704; J3010; J3360; P9016